=== PATIENT | male | born 1995 | race Caucasian/White ===

== ENCOUNTER 2021-01-28 02:51 | Emergency (ER) | payer SELFPAY ==
[~2021-01-28] VITALS: Ht 182.9 cm; Wt 81.8 kg
[2021-01-28] MEDS ORDERED: CEPHALEXIN500 M1 PO (07:24)
[2021-01-28 07:49] VITALS: BP 122/69; PULSE 80
[2021-01-30] MEDS ORDERED: FLONASEALLERGY NS (09:52)
== END 2021-01-28 07:49 | disposition home or self-care (01) ==
LOC: COL.ER 02:51
DX: S56.421A Laceration of extensor muscle, fascia and tendon of right index finger at forearm level, initial encounter (principal); W25.XXXA Contact with sharp glass, initial encounter; Y92.091 Bathroom in other non-institutional residence as the place of occurrence of the external cause

== ENCOUNTER → 2021-01-30 | Day surgery (SDC) | payer SELFPAY ==
[~2021-01-30] VITALS: Ht 175.3 cm; Wt 81.6 kg
[~2021-01-30] MED LIST: CEPHALEXIN500 M1 PO; FLONASEALLERGY NS
[2021-01-30 09:52] VITALS: BP 127/73; PULSE 79; TEMP 98.1
[2021-01-30 13:28] VITALS: BP 148/47; PULSE 68; TEMP 97.4
--- NOTE | 2021-01-30 13:28 | NUR ---
The patient arrived back to [facility] from the operating room at this time. The patient appears drowsy but arouses easily to his name. The patient has an acewrap/splint dressing in place to his right arm that appears clean, dry and intact. Post operative vital signs were started at this time. Call light is within reach. Family is at his bedside at this time. The patient agrees to try some apple juice at this time. Will continue to montior the patient.
[2021-01-30 13:43] VITALS: BP 150/52; PULSE 69
[2021-01-30 13:58] VITALS: BP 127/43; PULSE 58
--- NOTE | 2021-01-30 13:58 | NUR ---
The patient appears to be resting comfortably on the cart at this time. Vital signs appear stable. Family remains at his bedside. He appears to be tolerating the juice well and denies wanting anything further at this time. Will continue to monitor the patient.
[2021-01-30 14:13] VITALS: BP 133/50; PULSE 63
--- NOTE | 2021-01-30 14:13 | NUR ---
The patient ambulated to the bathroom with the stand by assistance of one and appeared to tolerate the activity well. The patient voided without difficulty and voices a desire to be discharged home.
--- NOTE | 2021-01-30 14:18 | NUR ---
Discharge instructions were reviewed with the patient and his family at this time. They all verbalized understanding and have no questions for the nurse at this time. The patient's IV to his left hand was removed and a pressure dressing was applied to the site. The patient's mother is assisting him to get dressed.
--- NOTE | 2021-01-30 14:25 | NUR ---
The patient was escorted out via wheelchair to a private vehicle by VALERIANO Vo. The patient's belongings and discharge paperwork were sent with him. The patient's mother is present to drive him home.
== END ==
LOC: SDCO 09:19
DX: S66.320A Laceration of extensor muscle, fascia and tendon of right index finger at wrist and hand level, initial encounter (principal); J30.9 Allergic rhinitis, unspecified; F41.9 Anxiety disorder, unspecified; Z79.891 Long term (current) use of opiate analgesic; Z79.899 Other long term (current) drug therapy; Z83.3 Family history of diabetes mellitus
CPT/HCPCS: J0690; J1100; J2250; J2704; J2795; J7120

== ENCOUNTER 2021-02-21 12:49 | Outpatient (RCR) | payer SELFPAY | END 2021-02-23 | disposition home or self-care (01) | LOC: WSOT | DX: S61.211A Laceration without foreign body of left index finger without damage to nail, initial encounter (principal) ==

== ENCOUNTER 2021-04-12 13:15 | Outpatient (RCR) | payer SELFPAY | END 2021-04-23 | disposition home or self-care (01) | LOC: WSOT | DX: S61.211A Laceration without foreign body of left index finger without damage to nail, initial encounter (principal) ==